=== PATIENT | female | born 1950 | race Asian ===

== ENCOUNTER 2017-04-15 13:07 | Emergency (ER) | payer MEDICARE, OTHER ==
[~2017-04-15] VITALS: Ht 167.6 cm; Wt 50.5 kg
[~2017-04-15 13:07] MED LIST: ASPI81 PO; ATOR20TA86 PO; SITA1TAB2 PO
[2017-04-15] MEDS ORDERED: TELM20 PO (13:28)
[2017-04-15] MEDS ORDERED: ACYCLOVIR 200 MG CAPSULE PO ONE (14:15)
[2017-04-15 14:45] VITALS: BP 124/86
== END 2017-04-15 14:45 | disposition home or self-care (01) ==
LOC: EMS 13:08
DX: B02.9 Zoster without complications (principal); I10 Essential (primary) hypertension; E78.00 Pure hypercholesterolemia, unspecified; E11.9 Type 2 diabetes mellitus without complications
CPT/HCPCS: 82962; 99173; 99283

== ENCOUNTER 2017-04-16 14:14 | Emergency (ER) | payer MEDICARE, OTHER ==
[~2017-04-16] VITALS: Ht 167.6 cm; Wt 50.5 kg
[~2017-04-16 14:14] MED LIST changes: +TELM20 PO
[2017-04-16 14:46] LABS: GLUCOSE,POINT OF CARE 108 MG/DL (70-110)
[2017-04-16 17:56] VITALS: BP 134/73
== END 2017-04-16 17:59 | disposition home or self-care (01) ==
LOC: EMS 14:16
DX: R21 Rash and other nonspecific skin eruption (principal); E11.9 Type 2 diabetes mellitus without complications; I10 Essential (primary) hypertension; E78.00 Pure hypercholesterolemia, unspecified
CPT/HCPCS: 82962; 99282